=== PATIENT | female | born 1935 | race Caucasian/White ===

== ENCOUNTER → 2018-01-30 | Outpatient (CLI) | payer MEDICARE | END | disposition home or self-care (01) | LOC: SHCH 13:05 | PROVIDERS: ATTEND Internal Medicine Cardiovascular Disease | DX: R60.0 Localized edema (principal) | CPT/HCPCS: 93970 ==

== ENCOUNTER → 2018-05-12 | Outpatient (CLI) | payer MEDICARE | END | disposition home or self-care (01) | LOC: RAH 09:28 | PROVIDERS: ATTEND Nurse Practitioner Adult Health | DX: Z12.31 Encounter for screening mammogram for malignant neoplasm of breast (principal) | CPT/HCPCS: 77067 ==

== ENCOUNTER 2018-08-06 10:22 | Inpatient (IN) | payer MEDICARE ==
[~2018-08-06] VITALS: Ht 162.6 cm; Wt 108.3 kg
[2018-08-06 11:08] LABS: BASOPHILS % (AUTO) 0.5 % (0.0-5.0); EOSINOPHILS % (AUTO) 1.8 % (0.0-8.0); HEMATOCRIT 41.1 % (36-48); LYMPHOCYTES % (AUTO) 16.7 % (21.0-51.0); MEAN CORPUSCULAR HEMOGLOBIN 31.9 pg (27.0-33.0); MEAN CORPUSCULAR HGB CONC 34.2 g/dL (32.0-36.0); MEAN CORPUSCULAR VOLUME 93.1 fL (79-99); MONOCYTES % (AUTO) 6.4 % (3.0-13.0); NEUTROPHILS % (AUTO) 74.6 % (40.0-77.0); PLATELET COUNT (AUTO) 150 K/uL (130-400); RED BLOOD CELL COUNT(AUTO) 4.41 MIL/uL (4.00-5.50); RED CELL DISTRIBUTION WIDTH 13.7 % (11.0-15.5); WHITE BLOOD COUNT (AUTO) 9.4 K/uL (4.8-10.8)
[2018-08-06 11:14] LABS: CREATININE 0.9 mg/dL (0.5-1.5); POTASSIUM 3.9 mmol/L (3.5-5.1)
[2018-08-06 11:19] LABS: ALBUMIN 3.6 g/dL (3.5-5.0); BILIRUBIN,TOTAL 0.5 mg/dL (0.2-1.0); TOTAL PROTEIN, SERUM 7.4 g/dL (6.0-8.3)
[2018-08-06] MEDS ORDERED: IOHEXOL 350 MG/ML 100ML INFUS..BTL IV ONE (13:17)
[2018-08-06] MEDS ORDERED: ENOXAPARIN SODIUM 60 MG/0.6 ML SQ ONE (15:20)
[2018-08-06] MEDS ORDERED: HYDRALAZINE HCL 20 MG/ML VIAL IV PRN (15:45)
[2018-08-06] MEDS ORDERED: ACETAMINOPHEN 325 MG TAB PO PRN (15:45)
[2018-08-06] MEDS ORDERED: ONDANSETRON HCL 4 MG/2 ML VIAL IV PRN (15:45)
[2018-08-06] MEDS ORDERED: MORPHINE SULFATE 2 MG/ML 1ML SYG IV PRN (15:45)
[2018-08-06] MEDS ORDERED: IPRATROPIUM/ALBUTEROL SULFATE 3 ML SOLUTION IH ONE (16:56)
[2018-08-06] MEDS: IPRATROPIUM/ALBUTEROL SULFATE 3 ML SOLUTION IH SCH ×2 (17:03→23:34)
[2018-08-06] MEDS ORDERED: IPRATROPIUM/ALBUTEROL SULFATE 3 ML SOLUTION IH SCH (18:00)
[2018-08-06 19:58] VITALS: BP 134/81
[2018-08-06] MEDS ORDERED: LOSA1TAB12 PO (21:06)
[2018-08-06] MEDS ORDERED: PREM625 PO (21:06)
[2018-08-06] MEDS ORDERED: HYDR-4153 PO (21:06)
[2018-08-06] MEDS ORDERED: LEVO50TA4 PO (21:06)
[2018-08-06] MEDS ORDERED: ATEN25TA PO (21:06)
[2018-08-06] MEDS: DiphenhydrAMINE HCL 25 MG/10 ML ELIXIR UDCUP PO SCH (21:59)
[2018-08-06] MEDS: ENOXAPARIN SODIUM 120 MG/0.8ML SQ SCH (22:00)
[2018-08-06] MEDS: FAMOTIDINE/PF 20 MG/2 ML VIAL IV SCH (22:00)
[2018-08-06 22:57] VITALS: BP 136/70
[2018-08-07 02:54] VITALS: BP 140/77
[2018-08-07 03:57] LABS: HEMATOCRIT 36.9 % (36-48); MEAN CORPUSCULAR HEMOGLOBIN 31.6 pg (27.0-33.0); MEAN CORPUSCULAR HGB CONC 34.2 g/dL (32.0-36.0); MEAN CORPUSCULAR VOLUME 92.4 fL (79-99); NUCLEATED RED BLOOD CELLS 0.1 % (0.0-0.19); PLATELET COUNT (AUTO) 132 K/uL (130-400); RED BLOOD CELL COUNT(AUTO) 3.99 MIL/uL (4.00-5.50); RED CELL DISTRIBUTION WIDTH 13.8 % (11.0-15.5); WHITE BLOOD COUNT (AUTO) 8.1 K/uL (4.8-10.8)
[2018-08-07 04:13] LABS: POTASSIUM 3.6 mmol/L (3.5-5.1)
[2018-08-07] MEDS: IPRATROPIUM/ALBUTEROL SULFATE 3 ML SOLUTION IH SCH ×3 (07:20→23:41)
[2018-08-07 08:22] VITALS: BP 126/56
[2018-08-07] MEDS: FAMOTIDINE/PF 20 MG/2 ML VIAL IV SCH ×2 (08:46→20:30)
[2018-08-07] MEDS: ENOXAPARIN SODIUM 120 MG/0.8ML SQ SCH ×2 (08:47→20:31)
[2018-08-07] MEDS: FUROSEMIDE 10 MG/ML 2ML VIAL IV SCH ×2 (08:47→20:30)
[2018-08-07 12:00] VITALS: BP 129/74
[2018-08-07 16:00] VITALS: BP 138/62
[2018-08-07 19:09] VITALS: BP 134/73
[2018-08-07] MEDS: APIXABAN 5 MG TABLET PO SCH (20:30)
[2018-08-07] MEDS: DiphenhydrAMINE HCL 25 MG/10 ML ELIXIR UDCUP PO SCH (20:30)
[2018-08-07 23:00] VITALS: BP 125/65
[2018-08-08 03:20] VITALS: BP 139/75
[2018-08-08 04:02] LABS: HEMATOCRIT 37.3 % (36-48); MEAN CORPUSCULAR HEMOGLOBIN 31.4 pg (27.0-33.0); MEAN CORPUSCULAR HGB CONC 33.8 g/dL (32.0-36.0); MEAN CORPUSCULAR VOLUME 93.1 fL (79-99); PLATELET COUNT (AUTO) 162 K/uL (130-400); RED BLOOD CELL COUNT(AUTO) 4.01 MIL/uL (4.00-5.50); RED CELL DISTRIBUTION WIDTH 13.8 % (11.0-15.5); WHITE BLOOD COUNT (AUTO) 8.2 K/uL (4.8-10.8)
[2018-08-08 04:06] LABS: POTASSIUM 3.5 mmol/L (3.5-5.1)
[2018-08-08] MEDS: FUROSEMIDE 10 MG/ML 2ML VIAL IV SCH ×2 (06:54→20:36)
[2018-08-08] MEDS: IPRATROPIUM/ALBUTEROL SULFATE 3 ML SOLUTION IH SCH ×3 (07:04→18:55)
[2018-08-08 08:59] VITALS: BP 139/66
[2018-08-08] MEDS: FAMOTIDINE/PF 20 MG/2 ML VIAL IV SCH ×2 (09:50→20:36)
[2018-08-08] MEDS: APIXABAN 5 MG TABLET PO SCH ×2 (09:50→20:38)
[2018-08-08] MEDS ORDERED: POLY17PO4 PO (09:58)
[2018-08-08 12:00] VITALS: BP 125/75
[2018-08-08 16:00] VITALS: BP 144/75
[2018-08-08] MEDS ORDERED: SIMV40TA2 PO (16:20)
[2018-08-08] MEDS: POLYETHYLENE GLYCOL 3350 17 GM POWD.PACK PO SCH (16:44)
[2018-08-08 19:28] VITALS: BP 117/69
[2018-08-08] MEDS: ATENOLOL 25 MG TABLET PO SCH (20:37)
[2018-08-08] MEDS: HYDRALAZINE HCL 25 MG TABLET PO SCH (20:37)
[2018-08-08] MEDS: DiphenhydrAMINE HCL 25 MG/10 ML ELIXIR UDCUP PO SCH (20:37)
[2018-08-08] MEDS: SIMVASTATIN 20 MG TABLET PO SCH (20:38)
[2018-08-08 23:35] VITALS: BP 143/77
[2018-08-09] MEDS: IPRATROPIUM/ALBUTEROL SULFATE 3 ML SOLUTION IH SCH ×4 (00:25→18:37)
[2018-08-09 03:26] LABS: BASOPHILS % (AUTO) 0.3 % (0.0-5.0); EOSINOPHILS % (AUTO) 2.6 % (0.0-8.0); HEMATOCRIT 37.8 % (36-48); LYMPHOCYTES % (AUTO) 27.7 % (21.0-51.0); MEAN CORPUSCULAR HEMOGLOBIN 30.7 pg (27.0-33.0); MEAN CORPUSCULAR HGB CONC 33.1 g/dL (32.0-36.0); MEAN CORPUSCULAR VOLUME 92.5 fL (79-99); MONOCYTES % (AUTO) 9.3 % (3.0-13.0); NEUTROPHILS % (AUTO) 60.1 % (40.0-77.0); PLATELET COUNT (AUTO) 137 K/uL (130-400); RED BLOOD CELL COUNT(AUTO) 4.08 MIL/uL (4.00-5.50); RED CELL DISTRIBUTION WIDTH 13.9 % (11.0-15.5); WHITE BLOOD COUNT (AUTO) 7.7 K/uL (4.8-10.8)
[2018-08-09 03:35] LABS: POTASSIUM 3.4 mmol/L (3.5-5.1)
[2018-08-09 04:07] VITALS: BP 132/68
[2018-08-09] MEDS: LEVOTHYROXINE 50 MCG TABLET PO SCH (06:07)
[2018-08-09 07:00] VITALS: BP 128/78
[2018-08-09] MEDS: FAMOTIDINE/PF 20 MG/2 ML VIAL IV SCH ×2 (08:15→20:32)
[2018-08-09] MEDS: ATENOLOL 25 MG TABLET PO SCH ×2 (08:15→20:33)
[2018-08-09] MEDS: POLYETHYLENE GLYCOL 3350 17 GM POWD.PACK PO SCH (08:15)
[2018-08-09] MEDS: APIXABAN 5 MG TABLET PO SCH ×2 (08:15→20:34)
[2018-08-09] MEDS: HYDRALAZINE HCL 25 MG TABLET PO SCH ×2 (08:16→20:33)
[2018-08-09] MEDS: LOSARTAN/HYDROCHLOROTHIAZIDE 50-12.5MG TABLET PO SCH (08:16)
[2018-08-09] MEDS: FUROSEMIDE 10 MG/ML 2ML VIAL IV SCH ×2 (08:17→20:32)
[2018-08-09] MEDS ORDERED: POTASSIUM CHLORIDE 10% ELIXIR 20 MEQ/15 ML UDCUP PO PRN (09:00)
[2018-08-09] MEDS ORDERED: POTASSIUM CHLORIDE 20MEQ/100ML 100 ML IV PRN (09:00)
[2018-08-09] MEDS ORDERED: POLYETHYLENE GLYCOL 3350 17 GM POWD.PACK PO SCH (09:00)
[2018-08-09] MEDS ORDERED: LIDOCAINE HCL-MPF 1% 2ML VIAL IVP PRN (09:00)
[2018-08-09 11:00] VITALS: BP 134/77
[2018-08-09] MEDS: POTASSIUM CHLORIDE 20 MEQ ERTAB PO PRN ×2 (13:43→17:10)
[2018-08-09 16:00] VITALS: BP 107/65
[2018-08-09 19:22] VITALS: BP 111/54
[2018-08-09] MEDS: SIMVASTATIN 20 MG TABLET PO SCH (20:25)
[2018-08-09] MEDS: DiphenhydrAMINE HCL 25 MG/10 ML ELIXIR UDCUP PO SCH (20:32)
[2018-08-09 23:45] VITALS: BP 121/54
[2018-08-10] MEDS: IPRATROPIUM/ALBUTEROL SULFATE 3 ML SOLUTION IH SCH ×4 (01:33→18:45)
[2018-08-10 04:41] LABS: BASOPHILS % (AUTO) 0.6 % (0.0-5.0); EOSINOPHILS % (AUTO) 3.8 % (0.0-8.0); HEMATOCRIT 35.9 % (36-48); LYMPHOCYTES % (AUTO) 26.7 % (21.0-51.0); MEAN CORPUSCULAR HEMOGLOBIN 31.7 pg (27.0-33.0); MEAN CORPUSCULAR HGB CONC 34.2 g/dL (32.0-36.0); MEAN CORPUSCULAR VOLUME 92.8 fL (79-99); NEUTROPHILS % (AUTO) 58.9 % (40.0-77.0); NUCLEATED RED BLOOD CELLS 0.1 % (0.0-0.19); PLATELET COUNT (AUTO) 165 K/uL (130-400); RED BLOOD CELL COUNT(AUTO) 3.87 MIL/uL (4.00-5.50); RED CELL DISTRIBUTION WIDTH 13.4 % (11.0-15.5); WHITE BLOOD COUNT (AUTO) 7.9 K/uL (4.8-10.8)
[2018-08-10 04:43] VITALS: BP 105/56
[2018-08-10 04:53] LABS: CREATININE 1.1 mg/dL (0.5-1.5); POTASSIUM 3.6 mmol/L (3.5-5.1); PROTHROMBIN TIME 10.5 SEC (9.6-11.6)
[2018-08-10] MEDS: LEVOTHYROXINE 50 MCG TABLET PO SCH (06:00)
[2018-08-10] MEDS: POTASSIUM CHLORIDE 20 MEQ ERTAB PO PRN ×2 (06:00→08:10)
[2018-08-10 07:00] VITALS: BP 120/51
[2018-08-10] MEDS: FUROSEMIDE 10 MG/ML 2ML VIAL IV SCH ×2 (08:37→19:58)
[2018-08-10] MEDS: LOSARTAN/HYDROCHLOROTHIAZIDE 50-12.5MG TABLET PO SCH (08:38)
[2018-08-10] MEDS: HYDRALAZINE HCL 25 MG TABLET PO SCH ×2 (08:38→19:59)
[2018-08-10] MEDS: APIXABAN 5 MG TABLET PO SCH ×2 (08:38→19:58)
[2018-08-10] MEDS: POLYETHYLENE GLYCOL 3350 17 GM POWD.PACK PO SCH (08:39)
[2018-08-10] MEDS: FAMOTIDINE/PF 20 MG/2 ML VIAL IV SCH ×2 (08:50→19:55)
[2018-08-10] MEDS: ATENOLOL 25 MG TABLET PO SCH ×2 (09:00→19:58)
[2018-08-10 11:00] VITALS: BP 112/46
[2018-08-10 16:00] VITALS: BP 118/68
[2018-08-10 19:34] VITALS: BP 126/55
[2018-08-10] MEDS: DiphenhydrAMINE HCL 25 MG/10 ML ELIXIR UDCUP PO SCH (19:55)
[2018-08-10] MEDS: SIMVASTATIN 20 MG TABLET PO SCH (19:55)
[2018-08-10 23:48] VITALS: BP 121/73
[2018-08-11] MEDS: IPRATROPIUM/ALBUTEROL SULFATE 3 ML SOLUTION IH SCH ×3 (00:01→11:07)
[2018-08-11 04:04] VITALS: BP 113/52
[2018-08-11] MEDS: LEVOTHYROXINE 50 MCG TABLET PO SCH (05:45)
[2018-08-11 07:00] VITALS: BP 116/67
[2018-08-11] MEDS: APIXABAN 5 MG TABLET PO SCH (08:26)
[2018-08-11] MEDS: HYDRALAZINE HCL 25 MG TABLET PO SCH (08:27)
[2018-08-11] MEDS: LOSARTAN/HYDROCHLOROTHIAZIDE 50-12.5MG TABLET PO SCH (08:27)
[2018-08-11] MEDS: ATENOLOL 25 MG TABLET PO SCH ×2 (08:28→08:42)
[2018-08-11] MEDS: FAMOTIDINE/PF 20 MG/2 ML VIAL IV SCH (08:28)
[2018-08-11] MEDS: FUROSEMIDE 10 MG/ML 2ML VIAL IV SCH (08:29)
[2018-08-11] MEDS: POLYETHYLENE GLYCOL 3350 17 GM POWD.PACK PO SCH (08:29)
[2018-08-11 11:00] VITALS: BP 103/53
== END 2018-08-11 14:15 | disposition home or self-care (01) | DRG 175 ==
LOC: EDH 10:22 → EDHIP 15:10 → 2DH 19:50
PROVIDERS: ADMIT Hospitalist; ATTEND Hospitalist
DX: I26.99 Other pulmonary embolism without acute cor pulmonale (principal); J96.01 Acute respiratory failure with hypoxia; I82.413 Acute embolism and thrombosis of femoral vein, bilateral; Z68.41 Body mass index [BMI] 40.0-44.9, adult; E11.51 Type 2 diabetes mellitus with diabetic peripheral angiopathy without gangrene; I10 Essential (primary) hypertension; E78.5 Hyperlipidemia, unspecified; I87.8 Other specified disorders of veins; I83.90 Asymptomatic varicose veins of unspecified lower extremity; F41.9 Anxiety disorder, unspecified; E66.01 Morbid (severe) obesity due to excess calories; L81.9 Disorder of pigmentation, unspecified; I25.10 Atherosclerotic heart disease of native coronary artery without angina pectoris; R79.1 Abnormal coagulation profile; Z96.659 Presence of unspecified artificial knee joint; Z90.49 Acquired absence of other specified parts of digestive tract; Z82.49 Family history of ischemic heart disease and other diseases of the circulatory system; Z83.3 Family history of diabetes mellitus; Z79.01 Long term (current) use of anticoagulants; Z79.02 Long term (current) use of antithrombotics/antiplatelets
CPT/HCPCS: 36415; 71045; 71275; 80048; 80053; 82550; 83880; 84484; 85025; 85027; 85378; 85610; 93005; 93306; 93970; 94640; 94664; 94760; 97039; 99291; J1650; J1940; J3490; Q9967

== ENCOUNTER → 2019-01-28 | Outpatient (CLI) | payer MEDICARE ==
[~2019-01-28] MED LIST: ATEN25TA PO; HYDR-4153 PO; LEVO50TA4 PO; LOSA1TAB12 PO; POLY17PO4 PO; SIMV40TA2 PO
== END | disposition home or self-care (01) ==
LOC: SHCH 09:39
PROVIDERS: ATTEND Internal Medicine Cardiovascular Disease
DX: I82.512 Chronic embolism and thrombosis of left femoral vein (principal); I82.532 Chronic embolism and thrombosis of left popliteal vein; I10 Essential (primary) hypertension; E78.5 Hyperlipidemia, unspecified; E66.9 Obesity, unspecified; E03.9 Hypothyroidism, unspecified; M19.90 Unspecified osteoarthritis, unspecified site; Z90.710 Acquired absence of both cervix and uterus
CPT/HCPCS: 93970

== ENCOUNTER → 2019-05-13 | Outpatient (CLI) | payer MEDICARE | END | disposition home or self-care (01) | LOC: RAH 09:46 | PROVIDERS: ATTEND Nurse Practitioner Adult Health | DX: Z12.31 Encounter for screening mammogram for malignant neoplasm of breast (principal) | CPT/HCPCS: 77067 ==

== ENCOUNTER → 2019-06-03 | Outpatient (CLI) | payer MEDICARE ==
[~2019-06-03] MED LIST changes: +ALBUTEROL SULFATE 0.083% 2.5 MG/3 ML INH IH ONE
== END | disposition home or self-care (01) ==
LOC: RESP 08:29
PROVIDERS: ATTEND Internal Medicine Cardiovascular Disease
DX: R06.00 Dyspnea, unspecified (principal); I25.10 Atherosclerotic heart disease of native coronary artery without angina pectoris; M47.814 Spondylosis without myelopathy or radiculopathy, thoracic region; Z90.49 Acquired absence of other specified parts of digestive tract
CPT/HCPCS: 71250; 94060; 94727; 94729

== ENCOUNTER → 2019-06-18 | Outpatient (CLI) | payer MEDICARE ==
[~2019-06-18] VITALS: Ht 162.6 cm; Wt 113.9 kg
[~2019-06-18] MED LIST changes: -ALBUTEROL SULFATE 0.083% 2.5 MG/3 ML INH IH ONE; +REGADENOSON 0.4 MG/5 ML PF SYG IVP SCH
== END | disposition home or self-care (01) ==
LOC: SHCH 08:24
PROVIDERS: ATTEND Internal Medicine Cardiovascular Disease
DX: R06.00 Dyspnea, unspecified (principal); R07.89 Other chest pain; I10 Essential (primary) hypertension
CPT/HCPCS: 78452; 93017; 96374; A9500 ×2; J2785

== ENCOUNTER → 2019-07-16 | Outpatient (CLI) | payer MEDICARE ==
[~2019-07-16] MED LIST changes: -REGADENOSON 0.4 MG/5 ML PF SYG IVP SCH
== END | disposition home or self-care (01) ==
LOC: OIH 14:05
DX: R06.02 Shortness of breath (principal); I26.99 Other pulmonary embolism without acute cor pulmonale; I82.523 Chronic embolism and thrombosis of iliac vein, bilateral; M47.819 Spondylosis without myelopathy or radiculopathy, site unspecified
CPT/HCPCS: 71046